=== PATIENT | female | born 1990 | race Caucasian/White ===

== ENCOUNTER 2021-03-19 10:32 | Emergency (ER) | payer OTHER ==
[2021-03-19 12:48] LABS: BASOPHIL 0.4 % (0-2); HCT 41.5 % (37.0-47.0); HGB 13.1 g/dl (12.5-16.0); LYMPHOCYTE 39.6 % (15-48); MCH 25.6 pg (25.0-31.0); MCHC 31.6 g/dL (32.0-36.0); MCV 81.1 fL (78.0-100.0); MONOCYTE 7.5 % (0-12); NEUTROPHIL 50.1 % (41-80); NRBC 0; PLT 318 K/uL (150-400); RBC 5.12 M/uL (4.20-5.40); RDW 14.6 % (11.5-14.0); WBC 2.6 K/uL (4.0-10.5)
[2021-03-19 13:14] LABS: ALBUMIN 3.3 g/dL (3.4-5.0); BILIRUBIN - TOTAL 0.1 mg/dL (0.2-1.0); BUN/CREAT RATIO (CALC) 17.6 RATIO; CREATININE 0.51 mg/dL (0.51-0.95); GLOBULIN (CALCULATION) 4.5 g/dL; POTASSIUM 3.5 mmol/L (3.5-5.1); TOTAL PROTEIN 7.8 g/dL (6.4-8.2)
[2021-03-19 13:29] LABS: BILIRUBIN NEGATIVE (NEGATIVE); BLOOD 3+ Ery/uL (NEGATIVE); CLARITY CLEAR (CLEAR); COLOR YELLOW (YELLOW); GLUCOSE (U) NORMAL (NORMAL); LEUKOCYTES NEGATIVE Leu/uL (NEGATIVE); NITRITE NEGATIVE (NEGATIVE); PROTEIN 1+ mg/dL (NEGATIVE); SPECIFIC GRAVITY 1.025 (1.001-1.030); UROBILINOGEN 0.2 mg/dL (0.2-1.0)
[2021-03-19 13:39] LABS: BACTERIA TRACE; URINARY RBC TNTC
[2021-03-19] MEDS ORDERED: DEXAMETHASONE 2M2 MG PO (14:29)
== END 2021-03-19 14:45 | disposition home or self-care (01) ==
LOC: FER 10:32
PROVIDERS: Internal Medicine
DX: U07.1 COVID-19 (principal)
CPT/HCPCS: 36415; 80053; 81001; 85025; 99284; U0002

== ENCOUNTER 2021-09-23 10:05 | Emergency (ER) | payer OTHER ==
[~2021-09-23 10:05] MED LIST: DEXAMETHASONE 2M2 MG PO
[2021-09-23 13:08] LABS: BASOPHIL 0.6 % (0-2); EOSINOPHIL 2.3 % (0-5); HCT 38.7 % (37.0-47.0); HGB 12.2 g/dl (12.5-16.0); LYMPHOCYTE 30.7 % (15-48); MCH 24.5 pg (25.0-31.0); MCHC 31.5 g/dL (32.0-36.0); MCV 77.9 fL (78.0-100.0); MONOCYTE 7.2 % (0-12); MPV 9.7 fL (6.0-9.5); NEUTROPHIL 58.8 % (41-80); NRBC 0; PLT 411 K/uL (150-400); RBC 4.97 M/uL (4.20-5.40); RDW 15.4 % (11.5-14.0)
[2021-09-23 13:22] LABS: BILIRUBIN NEGATIVE (NEGATIVE); BLOOD 3+ Ery/uL (NEGATIVE); CLARITY CLEAR (CLEAR); COLOR YELLOW (YELLOW); GLUCOSE (U) NORMAL (NORMAL); LEUKOCYTES NEGATIVE Leu/uL (NEGATIVE); NITRITE NEGATIVE (NEGATIVE); PROTEIN NEGATIVE (NEGATIVE); SPECIFIC GRAVITY >=1.030 (1.001-1.030); UROBILINOGEN 0.2 mg/dL (0.2-1.0)
[2021-09-23 13:31] LABS: URINARY RBC 20-50
[2021-09-23 13:34] LABS: MUCOUS MODERATE; SQUAMOUS EPITHELIAL CELLS 20-50
[2021-09-23 13:34] LABS: ALBUMIN 3.5 g/dL (3.4-5.0); BILIRUBIN - TOTAL 0.1 mg/dL (0.2-1.0); CREATININE 0.45 mg/dL (0.51-0.95); GLOBULIN (CALCULATION) 4.4 g/dL; POTASSIUM 3.7 mmol/L (3.5-5.1); TOTAL PROTEIN 7.9 g/dL (6.4-8.2)
[2021-09-23 13:35] LABS: BACTERIA TRACE
[2021-09-23] MEDS ORDERED: MEDROL 4MG DOSEP4 MG PO (15:15)
== END 2021-09-23 15:05 | disposition home or self-care (01) ==
LOC: FER 10:05
PROVIDERS: Nurse Practitioner Family
DX: R20.2 Paresthesia of skin (principal); R53.1 Weakness; U07.1 COVID-19
CPT/HCPCS: 36415; 70450; 72110; 80053; 81001; 85025; 85379

== ENCOUNTER 2021-10-22 16:11 | Emergency (ER) | payer OTHER ==
[~2021-10-22 16:11] MED LIST changes: +MEDROL 4MG DOSEP4 MG PO
[2021-10-22] MEDS ORDERED: CYCLOBENZAPRINE10 MG PO (17:22)
[2021-10-22] MEDS ORDERED: MEDROL 4MG DOSEP4 MG PO (17:22)
== END 2021-10-22 17:45 | disposition home or self-care (01) ==
LOC: FER 16:11
DX: M54.42 Lumbago with sciatica, left side (principal)
CPT/HCPCS: 96372; 99283; J1100; J1885